=== PATIENT | male | born 1950 | race Caucasian/White ===

== ENCOUNTER 2016-06-14 05:53 | Day surgery (SDC) | payer BC, OTHER ==
[2016-06-14] MEDS ORDERED: LACTATED RINGERS 1,000 ML ONE (06:44)
--- NOTE | 2016-06-14 09:36 | OP ---
DATE OF PROCEDURE: 06/14/16 PREPROCEDURE DIAGNOSIS: 1. Personal history of colonic polyp. 2. Change in bowel habits. 3. Abdominal pain. POSTPROCEDURE DIAGNOSIS: 1. Personal history of colonic polyp. 2. Change in bowel habits. 3. Abdominal pain. 4. Unremarkable colonoscopy. PROCEDURE: 1. Colonoscopy. SURGEON: Alex Maldonado MD. ANESTHESIA: Monitored anesthesia care. INDICATION: This gentleman had an adenomatous polyp in the right colon previously. Due to surveillance colonoscopy. Recently, he has had slight change in bowel habits, hemorrhoidal difficulty and occasional cramping in the abdomen. FINDINGS: Digital exam showed normal anal canal with no rectal masses, normal sized prostate. No obvious external hemorrhoid. Colon preparation was good. The colon was examined to good advantage. The scope was introduced all the way to the cecum. Rectum is unremarkable. Minimal diverticular disease in the sigmoid colon. The descending colon, transverse colon, ascending colon and cecum are normal. Ileocecal valve and appendix opening both identified. Terminal ileum intubated and appears normal. Careful examination of the entire colon did not show any significant abnormality. U-turn of the scope in the rectum shows more internal hemorrhoids. The patient tolerated the procedure well. Total scope withdrawal time was 6 minutes. FINAL IMPRESSION: 1. Unremarkable colonoscopy to the terminal ileum with no lesion identified. RECOMMENDATION: Surveillance colonoscopy in 5 years. Advise dietary fiber. If bleeding recurs, can consider hemorrhoid banding as outpatient. #[id number] cc: MD Alex Rosas MD MTDD
[2016-06-14] MEDS ORDERED: PROPOFOL 200 MG/20 ML VIAL IV ONE (10:00)
[2016-06-14 13:10] VITALS: BP 117/79; TEMP 98; O2SAT 96
== END 2016-06-14 09:10 | disposition home or self-care (01) ==
LOC: AMB 05:53
PROVIDERS: ATTEND Internal Medicine Gastroenterology
DX: R10.9 Unspecified abdominal pain (principal); R19.4 Change in bowel habit; E78.00 Pure hypercholesterolemia, unspecified; Z88.0 Allergy status to penicillin; Z86.010 Personal history of colon polyps; Z80.0 Family history of malignant neoplasm of digestive organs; Z96.653 Presence of artificial knee joint, bilateral; Z79.899 Other long term (current) drug therapy
CPT/HCPCS: 00810; 45378; J3490; J7120

== ENCOUNTER 2016-11-16 10:55 | Emergency (ER) | payer MEDICARE, OTHER ==
[2016-11-16] MEDS ORDERED: TETANUS,DIPHTHERIA,PERTUSSIS 1 EA SYG IM ONE (11:38)
[2016-11-16] MEDS ORDERED: CHLORHEXIDINE GLUCONATE 4 % 15 ML UD TOP ONE (11:40)
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
[2016-11-16 11:44] VITALS: BP 111/69; TEMP 98.3
== END 2016-11-16 12:00 | disposition home or self-care (01) ==
LOC: ER 10:55
DX: S61.412A Laceration without foreign body of left hand, initial encounter (principal); Z23 Encounter for immunization; W22.8XXA Striking against or struck by other objects, initial encounter

== ENCOUNTER → 2016-11-29 | Outpatient (CLI) | payer MEDICARE, OTHER | LOC: LAB.O 14:35 | PROVIDERS: ATTEND Urology | DX: R97.20 Elevated prostate specific antigen [PSA] (principal) ==

== ENCOUNTER → 2017-04-27 | Outpatient (CLI) | payer MEDICARE, OTHER | LOC: GMAB 12:30 | PROVIDERS: ATTEND Family Medicine | DX: Z12.5 Encounter for screening for malignant neoplasm of prostate (principal); R53.82 Chronic fatigue, unspecified | CPT/HCPCS: 84403; 84443; G0103 ==

== ENCOUNTER → 2017-04-30 | Outpatient (CLI) | payer MEDICARE, OTHER | END | disposition home or self-care (01) | LOC: GMAB 14:47 | PROVIDERS: ATTEND Family Medicine | DX: M79.1 Myalgia (principal); R23.3 Spontaneous ecchymoses ==

== ENCOUNTER → 2018-06-25 | Outpatient (CLI) | payer MEDICARE, OTHER | LOC: GMAE 10:47 | PROVIDERS: ATTEND Family Medicine | DX: R97.20 Elevated prostate specific antigen [PSA] (principal); Z79.899 Other long term (current) drug therapy ==

== ENCOUNTER → 2018-09-04 | Outpatient (CLI) | payer MEDICARE, OTHER | LOC: GMAE 17:02 | PROVIDERS: ATTEND Family Medicine | DX: M79.671 Pain in right foot (principal); M79.672 Pain in left foot ==

== ENCOUNTER → 2019-10-27 | Outpatient (CLI) | payer MEDICARE, OTHER | LOC: GMAE 11:35 | PROVIDERS: ATTEND Family Medicine | DX: Z12.5 Encounter for screening for malignant neoplasm of prostate (principal); Z79.899 Other long term (current) drug therapy | CPT/HCPCS: 84443; G0103 ==

== ENCOUNTER → 2020-04-28 | Outpatient (CLI) | payer MEDICARE, OTHER | LOC: GMAE 14:45 | PROVIDERS: ATTEND Family Medicine | DX: E78.2 Mixed hyperlipidemia (principal); Z13.29 Encounter for screening for other suspected endocrine disorder ==